=== PATIENT | male | born 1985 | race Hispanic/Latino ===

== ENCOUNTER 2019-05-20 09:17 | Emergency (ER) | payer SELFPAY ==
[2019-05-20] MEDS ORDERED: Dexamethasone 4 mg/ml Vial ONE (10:05)
--- NOTE | 2019-05-20 10:32 | RAD ---
2 VIEWS CHEST: Date: 05/20/19 PROVIDED CLINICAL HISTORY: Cough. FINDINGS: Comparison with 03/09/10. Cardiac and mediastinal silhouette within normal limits. Lungs appear clear. No pleural fluid or pneu mothorax apparent. IMPRESSION: No evidence for an acute cardiopulmonary process. POS: [facility]
== END 2019-05-20 11:42 | disposition home or self-care (01) ==
LOC: ERS 09:17
DX: J06.9 Acute upper respiratory infection, unspecified (principal)
CPT/HCPCS: 71046; 94640; J1100; J7620

== ENCOUNTER 2020-10-15 09:48 | Emergency (ER) | payer OTHER, SELFPAY ==
[2020-10-15 13:03] LABS: SARS-CoV-2 MS2 Positive; SARS-CoV-2 N Gene Positive; SARS-CoV-2 S Gene Positive; SARS-CoV-2 by NAA DETECTED (NotDetected); SARS-CoV-2 orf1ab Positive
== END 2020-10-15 10:58 | disposition home or self-care (01) ==
LOC: ERS 09:48
DX: U07.1 COVID-19 (principal)
CPT/HCPCS: 87635; 99283; U0003